=== PATIENT | male | born 1970 | race Hispanic/Latino ===

== ENCOUNTER → 2018-11-28 | Outpatient (CLI) | payer OTHER | END | disposition home or self-care (01) | LOC: RAH 16:53 | PROVIDERS: ATTEND Urology | DX: N20.0 Calculus of kidney (principal); K59.00 Constipation, unspecified | CPT/HCPCS: 74018; 76100 ==

== ENCOUNTER 2020-11-23 16:33 | Emergency (ER) | payer OTHER ==
[~2020-11-23] VITALS: Ht 170.2 cm; Wt 104.3 kg
[2020-11-23 16:43] VITALS: BP 154/90
[2020-11-23] MEDS ORDERED: ONDANSETRON 4MG INJ ONE (17:26)
[2020-11-23] MEDS ORDERED: MORPHINE 4 MG SYG ONE (17:27)
[2020-11-23] MEDS ORDERED: ONDANSETRON 4MG INJ IVP ONE (17:30)
[2020-11-23] MEDS ORDERED: MORPHINE 4 MG SYG IV ONE (17:30)
[2020-11-23 17:49] LABS: BASOPHILS % (AUTO) 0.5 % (0.0-5.0); EOSINOPHILS % (AUTO) 0.1 % (0.0-8.0); LYMPHOCYTES % (AUTO) 9.6 % (21.0-51.0); MEAN CORPUSCULAR HEMOGLOBIN 30.1 pg (27.0-33.0); MEAN CORPUSCULAR VOLUME 88.5 fL (79-99); NEUTROPHILS % (AUTO) 82.4 % (40.0-77.0); PLATELET COUNT (AUTO) 203 K/uL (130-400); RED BLOOD CELL COUNT(AUTO) 5.31 MIL/uL (4.50-6.20); RED CELL DISTRIBUTION WIDTH 12.1 % (11.0-15.5); WHITE BLOOD COUNT (AUTO) 12.7 K/uL (4.8-10.8)
[2020-11-23 18:10] LABS: INR 0.98 (0.85-1.15); PROTHROMBIN TIME 10.7 SEC (9.6-11.6)
[2020-11-23 18:12] LABS: ALBUMIN 3.9 g/dL (3.5-5.0); BILIRUBIN,TOTAL 0.6 mg/dL (0.2-1.0); CREATININE 1.4 mg/dL (0.5-1.5); POTASSIUM 4.2 mmol/L (3.5-5.1); TOTAL PROTEIN, SERUM 7.7 g/dL (6.0-8.3)
[2020-11-23 18:15] LABS: B-TYPE NATRIURETIC PEPTIDE 14 pg/mL (0-100)
[2020-11-23] MEDS ORDERED: 0.9%NACL 1000ML 1,000 ML IV ONE (18:40)
[2020-11-23] MEDS ORDERED: KETOROLAC 30MG VIAL (30MG/ML) ONE (18:40)
[2020-11-23] MEDS ORDERED: KETOROLAC 30MG VIAL (30MG/ML) IV ONE (19:00)
[2020-11-23] MEDS ORDERED: METOCLOPRAMIDE 10 MG/2 ML VIAL IVP ONE (20:00)
[2020-11-23] MEDS ORDERED: LACTATED RINGERS 1000ML 1,000 ML IV ONE (20:00)
[2020-11-23 20:02] VITALS: BP 114/62
[2020-11-23] MEDS ORDERED: DiphenhydrAMINE HCL 50 MG/ML VIAL IV ONE (20:30)
[2020-11-23] MEDS ORDERED: TAMSULOSIN HCL 0.4 MG CAP.ER.24H PO SCH (20:30)
[2020-11-23] MEDS ORDERED: METO-296 PO (20:35)
[2020-11-23] MEDS ORDERED: TAMS-1 PO (20:35)
[2020-11-23] MEDS ORDERED: ACET1TAB25 PO (20:35)
[2020-11-23] MEDS ORDERED: DICY20TA2 PO (20:35)
[2020-11-23] MEDS ORDERED: ONDA4TAB10 PO (20:35)
[2020-11-23] MEDS ORDERED: MELO7.5T12 PO (21:03)
[2020-11-26] MEDS ORDERED: TAMS-1 PO (00:48)
== END 2020-11-23 21:12 | disposition home or self-care (01) ==
LOC: EDH 16:33
DX: N13.2 Hydronephrosis with renal and ureteral calculous obstruction (principal); E86.9 Volume depletion, unspecified; E11.9 Type 2 diabetes mellitus without complications; E78.00 Pure hypercholesterolemia, unspecified
CPT/HCPCS: 36415; 71045; 74176; 80053; 82550; 83880; 84484; 85025; 85610; 85730; 93005; 96374; 96375; 99285; J1200; J1885; J2270; J2405; J2765; J7030

== ENCOUNTER 2020-11-24 21:25 | Emergency (ER) | payer OTHER ==
[~2020-11-24] VITALS: Ht 170.2 cm; Wt 98.9 kg
[~2020-11-24 21:25] MED LIST: ACET1TAB25 PO; DICY20TA2 PO; MELO7.5T12 PO; METO-296 PO; ONDA4TAB10 PO; TAMS-1 PO
[2020-11-24 22:25] LABS: BASOPHILS % (AUTO) 0.5 % (0.0-5.0); EOSINOPHILS % (AUTO) 0.8 % (0.0-8.0); HEMATOCRIT 44.1 % (42-54); LYMPHOCYTES % (AUTO) 15.5 % (21.0-51.0); MEAN CORPUSCULAR HEMOGLOBIN 30.1 pg (27.0-33.0); MEAN CORPUSCULAR HGB CONC 34.2 g/dL (32.0-36.0); MONOCYTES % (AUTO) 8.6 % (3.0-13.0); PLATELET COUNT (AUTO) 188 K/uL (130-400); RED BLOOD CELL COUNT(AUTO) 5.01 MIL/uL (4.50-6.20); RED CELL DISTRIBUTION WIDTH 11.9 % (11.0-15.5); WHITE BLOOD COUNT (AUTO) 10.4 K/uL (4.8-10.8)
[2020-11-24] MEDS ORDERED: 0.9%NACL 1000ML 1,000 ML IV ONE ×2 (22:30)
[2020-11-24] MEDS ORDERED: KETOROLAC 30MG VIAL (30MG/ML) IV ONE (22:30)
[2020-11-24] MEDS ORDERED: METOCLOPRAMIDE 10 MG/2 ML VIAL IVP ONE (22:30)
[2020-11-24] MEDS ORDERED: DiphenhydrAMINE HCL 50 MG/ML VIAL IV ONE (22:30)
[2020-11-24] MEDS ORDERED: ONDANSETRON 4MG INJ IVP ONE (22:30)
[2020-11-24 22:49] LABS: ALBUMIN 3.6 g/dL (3.5-5.0); BILIRUBIN,TOTAL 0.6 mg/dL (0.2-1.0); CREATININE 1.3 mg/dL (0.5-1.5); TOTAL PROTEIN, SERUM 7.3 g/dL (6.0-8.3)
[2020-11-25 01:07] LABS: APPEARANCE,URINE Cloudy (CLEAR); BILIRUBIN,URINE Negative (NEGATIVE); COLOR,URINE Yellow (YELLOW); GLUCOSE, URINE (UA) Negative (NEGATIVE); KETONES,URINE Trace mg/dL (NEGATIVE); LEUKOCYTE ESTERASE ,URINE Negative (NEGATIVE); NITRATE,URINE Negative (NEGATIVE); OCCULT BLOOD,URINE Large (NEGATIVE); PROTEIN,URINE Negative (NEGATIVE); UROBILINOGEN,URINE 0.2 mg/dL (0.2-1.0)
[2020-11-25 01:14] LABS: RBC,URINE 26-50 /HPF (0-1)
[2020-11-25 01:15] LABS: BACTERIA,URINE Rare /HPF (None Seen); MUCUS,URINE Rare LPF (None Seen); SQUAMOUS EPITHELIAL CELL,UR Rare /HPF (0-2); WBC,URINE 0-1 /HPF (0-1); YEAST,URINE BUDDING Rare /HPF (None Seen)
[2020-11-25 01:18] LABS: CALCIUM OXALATE CRYSTALS,UR Few /LPF (None Seen)
[2020-11-25 03:07] VITALS: BP 142/80
[2020-11-26] MEDS ORDERED: TAMS-1 PO (00:48)
== END 2020-11-25 03:05 | disposition home or self-care (01) ==
LOC: EDH 21:25
DX: N23 Unspecified renal colic (principal); E86.9 Volume depletion, unspecified; Z79.1 Long term (current) use of non-steroidal anti-inflammatories (NSAID); Z79.899 Other long term (current) drug therapy; Z87.442 Personal history of urinary calculi
CPT/HCPCS: 36415; 80053; 81001; 85025; 96374; 96375; 99284; J1200; J1885; J2405; J2765; J7030